=== PATIENT | female | born 1990 | race Caucasian/White ===

== ENCOUNTER 2024-11-14 16:59 | Outpatient (CLI) | payer BC, SELFPAY ==
--- OUTSIDE RECORDS SUMMARY | 2024-11-14 17:02 | XMS_ITS | Clinical Summary ---
Author Organization [facility] Address [address] [facility] [address] [place] [address] Phone Care Team Providers Care Blow Molder Name Role Phone Yemi Avila MD Primary Care Provider [phone] Medications clonazePAM 0.5 MG TABLET DISPERSIBLEIndi cations:Anxiety Take by mouth. prn Indications: Feeling Anxious Active methylPREDNISol one (MEDROL DOSPACK) 4 MG Tablet Therapy Pack See product package insert for dosing schedule 21 Tablet 11/23/2022 Active cyclobenzaprine (FLEXERIL) 5 MG Tablet Take 1 Tablet by mouth 3 times daily as needed for Muscle spasms. 15 Tablet 11/23/2022 Active Active Problems Problem Noted Date Diagnosed Date Drug abuse by member of household 06/06/2022 DEWAYNE (generalized anxiety disorder) 03/10/2022 Family History Medical History Relation Name Comments Bipolar Disorder Father Cancer Father Schizophrenia Father Drug Abuse Mother Relation Name Status Comments Father from lung cancer. had ptsd from [place] Mother Alive Social History Tobacco Use Types Packs/Day Years Used Date Smoking Tobacco: Every Day Cigarettes 0.3 20.4 Started: 06/26/2004 Smokeless Tobacco: Never Tobacco Cessation:Ready to Q uit: No Alcohol Use Standard Drinks/Week Comments Yes 0 (1 standard drink = 0.6 oz pure alcohol) twice a month a couple beers or wine Sexually Active Control Partners Comments Not Currently Male, Female Comments Unknown Sex and Gender Information Value Date Recorded Sex Assigned at Not on file Legal Sex Female 9:19 PM CDT Gender Identity Not on file Sexual Orientation Not on file Last Filed Vital Signs Vital Sign Reading Time Taken Comments Blood Pressure 130/80 11/23/2022 2:10 PM CDT Pulse 89 11/23/2022 2:10 PM CDT Temperature 36.7 C (98 F) 11/23/2022 2:10 PM CDT Respiratory Rate 18 11/23/2022 2:10 PM CDT Oxygen Saturation 100% 11/23/2022 2:10 PM CDT Inhaled Oxygen Concentration - - Weight 90.7 kg (200 lb) 11/23/2022 12:22 PM CDT Height 157.5 cm (5' 2 ) 11/23/2022 12:22 PM CDT Body Mass Index 36.58 11/23/2022 12:22 PM CDT Plan of Treatment Health Maintenance Due Date Last Done Comments Hepatitis C Virus (HCV) Screening 1989 Hepatitis B Immunization (1 of 3 - 19+ 3-dose series) 2008 Pap Smear 2010 Cervical Cancer Screening (CCS) 2019 HPV/Cotest 2019 Influenza Immunization (#1) 2024 SARS-COV-2 Immunization (2023- season) 2024 Respiratory Syncytial Virus (RSV) Immunization (Adult) (1 - 1-dose 75+ series) 2064 TdaP Immunization Completed 08/14/2003 DTaP/Tdap/Td Immunization Discontinued 2003, 08/14/2003, 10/26/1994, Additional history exists Meningococcal Immunization (ACWY) Aged Out No longer eligible based on patient's age to complete this topic Pneumococcal Immunization Combined Aged Out No longer eligible based on patient's age to complete this topic Rotavirus Immunization Aged Out No lo nger eligible based on patient's age to complete this topic Goals Goal Patient Goal Type Associated Problems Recent Progress Patient-Stated? Author Patient wants anxiety to decrease Behavioral Health No change(04/01 1:44 PM CDT) Yes Merle Alvarado LCSW Note: Anxiety symptoms and intrusive thoughts. My behavior affects my daughter. decrease anxiety by increasing insight and coping skills Behavioral Health No change(04/01 1:44 PM CDT) No Merle Alvarado LCSW Note: Goal/Objective: Decrease anxiety symptoms . Anticipated Time Frame for Goal Completion: 6 months Goal Reviewed with: patient Readiness to change: Ready to change Department associated with goal: [facility] Steps to achieve goal: will attend counseling/psychotherapy sessions at least once monthly at least 6 sessions , utilizing individual and/or group sessions to express thoughts and feelings. Review chaos of chilldhood and consider impact on current response to identify, verbalize and process at least three contributing factors/triggers to anxiety. to identify at least two lifestyle changes/habits. to put into action, at least one lifestyle change/habit, for one month or longer, to reduce and or cope with anxiety. Insurance MEDICAID AETNA [facility] Care Teams Blow Molder Relationship Specialty Start Date End Date Yemi Avila MD [address] [place] [id number] PCP - General Internal Medicine 06/30/21
--- OUTSIDE RECORDS SUMMARY | 2024-11-14 17:03 | XMS_ITS | Continuity of Care Document ---
Author Organization [facility] ice Address [address] [place] [address] Phone Care Team Providers Care Stove Installer Name Role Phone Unavailable Unavailable Unavailable Allergies, Adverse Reactions, Alerts Substance Reaction Status Criticality azithromycin GI problems Active No Information Medications Medication Instructions Dosage Effective Dates (start - stop) Status Comments Bactrim DS 800 mg-160 mg tablet take 1 tablet by oral route every 12 hours 1.00 tablet - Active Flonase 50 mcg/actuation nasal spray,suspension spray 2 spray (100MCG) by intranasal route every day in each nostril as needed - No Longer Active loratadine 10 mg tablet take 1 tablet (10MG) by oral route every day 10 MG - No Longer Active Procedures Procedure Date OFFICE/OUTPATIENT VISIT, [facility] OFFICE/OUTPATIENT VISIT, [facility] Advance Directives Directive Yes / No Effective Date File Name No Information Encounters Encounter Description Practice Location Reason(s) For Visit Diagnoses Date Provider Providers Copied on Encounter OFFICE/OUTPAT IENT VISIT, [facility], [address] [place] [address], [facility], tel:[phone] Corry LUMP IN R ARMPIT (chief complaint) Cellulitis 5 No Information OFFICE/OUTPAT IENT VISIT, [facility], [address] [place] [address], tel:[phone] Corry ALLERGIES (chief complaint) Allergic rhinitis 4 Sola Corrina. [address] [place] [address], [facility], . tel:[phone] Family History Family Member Type Diagnosis Age At Onset No Information Payers Payer name Insurance type Covered green party ID Christopher alvarez(s) No Information Social History Type Description Quantity Date Captured Comments Alcohol Use Details beer & wine 3 glasses socially 2014 Caffeine Use Details No Tobacco Use Status Occasional cigarette smoker Smoking Status Current some day smoker Smoking Tobacco Use Details Cigarette: No Details Available Cigarette: No Details Available Sex Female Vital Signs Date / Time: Height Weight BMI Pulse Rate Blood Pressure Temperature Respiratory Rate Body Surface Area Head Circumference Head Circ. Percentile Wt./Manolo. Percentile BMI percentile Pulse Ox Inhaled Ox 5:18 PM 68.946 kg (152.00 lbs) 92 /min 120/80 mm[Hg] 98.80 F 18 /min 98 % Chief Complaint And Reason For Visit From encounter dated '01/13/2015 17:09'. LUMP IN R ARMPIT (chief complaint). Description: The symptoms began 1 week ago and generally lasts 1 Week. The symptoms are reported as being moderate. The symptoms occur constantly. The location is right armpit. Patient found a lump in her armpit about a week ago. She states it is painful when shetouches it Reason For Referral Reason For Referral No Information History Of Present Illness Encounter Date Complaint History Of Prese nt Illness LUMP IN R ARMPIT The symptoms be tammie 1 week ago and generally lasts 1 Week. The symptoms are reported as being moderate. The symptoms occur constantly. The location is right armpit. Patient found a lump in her armpit about a week ago. She states it is painful when she touches it ALLERGIES The patient pres ents with itchy eyes, post nasal drainage, sneezing and watery eyes that began 1 week ago. Symptoms are constant, moderate and unchanged. The symptoms are felt to be related to season change. The patient is also experiencing headache, nasal congestion, post nasal drainage, sneezing and tearing. Functional Status Date Functional Assessmen t No Information Instructions Date Instruction Additional Infor luisbenson will do bactrim. Adv ised pt to f.u in two weeks time. Advised her to Related to Cellulitis monitor for signs of lymphadenop athy. Related to Cellulitis Patient instructed on use of ene ine sprays. Related to Allergic rhinitis Increase fluids. Related to Justin rgic rhinitis Instructions given for sinus irr igation. Related to Allergic rhinitis Assessments Type Assessment Date assessment Cellulitis Patient Care Teams Name Effective Dates (start - stop) Status Members No Information
[2024-11-14 17:25] LABS: Hematocrit 38.5 % (37.0-47.0); Hemoglobin 12.9 g/dL (12.0-15.0); Mean Corpuscular HGB Conc 33.5 g/dl (32-36); Mean Corpuscular Hemoglobin 30.1 pg (26-34); Mean Corpuscular Volume 89.7 fl (80-100); Mean Platelet Volume 10.3 fl (7.4-10.4); Platelet Count Result 324 k/mm3 (150-375); Red Blood Count 4.29 M/mm3 (4.2-5.4); Red Cell Distribution Width 12.6 % (11.5-14.5); White Blood Count 10.2 K/mm3 (4.5-10.0)
[2024-11-14 18:21] LABS: HIV 1/2 Ab P24 Ag Result Negative (Negative)
[2024-11-14 18:22] LABS: Hepatitis B Surface Antigen Negative (Negative); Rubella IgG Antibody 62.8 IU/ML
[2024-11-14 19:05] LABS: Syphilis IgG/IgM Antibody Negative (Negative)
[2024-11-16 03:54] LABS: CMV IgG Antibody <0.60 U/mL; Varicella IgG Antibody 5.42 S/CO
== END 2024-11-14 17:00 | disposition home or self-care (01) ==
LOC: ANHLAB 17:01
PROVIDERS: Visit Provider Student in an Organized Health Care Education/Training Program
DX: N91.2 Amenorrhea, unspecified (principal)
CPT/HCPCS: 36415; 84702; 85027; 86592; 86593; 86644; 86703; 86747; 86762; 86787; 86850; 86900; 86901; 87086; 87340; G0432

== ENCOUNTER 2024-11-20 14:53 | Outpatient (CLI) | payer BC, SELFPAY ==
--- OUTSIDE RECORDS SUMMARY | 2024-11-20 16:26 | XMS_ITS | Clinical Summary ---
Author Organization [facility] Address [address] [facility] [address] [place] [address] Phone Care Team Providers Care Plant Culture Manager Name Role Phone Yemi Avila MD Primary Care Provider [phone] Medications clonazePAM 0.5 MG TABLET DISPERSIBLEIndi cations:Anxiety [...] Ready to change Department associated with goal: [facility] Steps to achieve goal: [...] or cope with anxiety. Insurance MEDICAID AETNA [facility] Care Teams Plant Culture Manager Relationship Specialty Start Date End Date Yemi Avila MD [address] [place] [id number] PCP - General Internal Medicine 06/30/21
--- OUTSIDE RECORDS SUMMARY | 2024-11-20 16:26 | XMS_ITS | Continuity of Care Document ---
Author Organization [facility] ice Address [address] [place] [address] Phone Care Team Providers Care Organizational Development Manager Name Role Phone Unavailable Unavailable Unavailable Allergies, [...] Longer Active Procedures Procedure Date OFFICE/OUTPATIENT VISIT, [facility] OFFICE/OUTPATIENT VISIT, [facility] Advance Directives Directive Yes / No Effective Date File Name No Information Encounters Encounter Description Practice Location Reason(s) For Visit Diagnoses Date Provider Providers Copied on Encounter OFFICE/OUTPAT IENT VISIT, [facility], [address] [place] [address], [facility], tel:[phone] Corry LUMP IN R ARMPIT (chief complaint) Cellulitis 5 No Information OFFICE/OUTPAT IENT VISIT, [facility], [address] [place] [address], tel:[phone] Corry ALLERGIES (chief complaint) Allergic rhinitis 4 Sola Corrina. [address] [place] [address], [facility], . tel:[phone] Family History Family Member Type Diagnosis Age At Onset No Information Payers Payer name Insurance type Covered alliance party ID Christopher alvarez(s) No Information Social [...]
== END 2024-11-20 14:54 | disposition home or self-care (01) ==
LOC: ANHLAB 14:54
PROVIDERS: Visit Provider Student in an Organized Health Care Education/Training Program
DX: O46.90 Antepartum hemorrhage, unspecified, unspecified trimester (principal)
CPT/HCPCS: 36415; 84702

== ENCOUNTER 2024-11-27 14:04 | Outpatient (CLI) | payer BC, SELFPAY ==
--- NOTE | ~2024-11-27 | US_ITS ---
EXAMINATION: US OB <= 14 weeks fetus DATE: 11/27/2024 15:18 CDT INDICATION: Encounter for supervision of normal COMPARISON: None TECHNIQUE: Real-time transabdominal obstetric ultrasound. FINDINGS: 2 para 1 Estimated date of delivery by last menstrual period is 06/14/2025 The uterus measures 15.7 x 10.5 x 7.2 cm. A gestational sac is identified within the uterus. A possible implantation hemorrhage is detected measuring 19 x 16 x 24 mm. A pole is identified, with a crown-rump length that measures 1.82 cm, corresponding to an appro ximate gestational age of 8 weeks and 2 days. cardiac activity is identified at a rate of 186 bpm. The right ovary measures 3.8 x 3.5 x 2.0 cm. The left ovary measures 4.0 x 3.2 x 2.2 cm. Estimated date of delivery by ultrasound is 07/07/2025 IMPRESSION: Single intrauterine gestation with an approximate gestational age of 8 weeks and 2 days, with c ardiac activity identified. Possible implantation hemorrhage measuring 24 mm in greatest dimension for which short-term follow-up is recommended. Reviewed, dictated and finalized at location A. IMPRESSION: Single intrauterine gestation with an approximate gestational age of 8 weeks an d 2 days, with cardiac activity identified. Possible implantation hemorrhage measuring 24 mm in greatest dimension for whic h short-term follow-up is recommended.
--- OUTSIDE RECORDS SUMMARY | 2024-11-27 15:19 | XMS_ITS | Continuity of Care Document ---
Author Organization [facility] ice Address [address] [place] [address] Phone Care Team Providers Care Career Advisor Name Role Phone Unavailable Unavailable Unavailable Allergies, [...] Longer Active Procedures Procedure Date OFFICE/OUTPATIENT VISIT, [facility] OFFICE/OUTPATIENT VISIT, [facility] Advance Directives Directive Yes / No Effective Date File Name No Information Encounters Encounter Description Practice Location Reason(s) For Visit Diagnoses Date Provider Providers Copied on Encounter OFFICE/OUTPAT IENT VISIT, [facility], [address] [place] [address], [facility], tel:[phone] Corry LUMP IN R ARMPIT (chief complaint) Cellulitis 5 No Information [facility] [address] [place] [address], tel:[phone] Corry ALLERGIES (chief complaint) Allergic rhinitis 4 Sola Corrina. [address] [place] [address], [facility], . tel:[phone] Family History Family Member Type Diagnosis Age At Onset No Information Payers Payer name Insurance type Covered democrat ID Christopher alvarez(s) No Information Social History [...]
--- OUTSIDE RECORDS SUMMARY | 2024-11-27 15:19 | XMS_ITS | Clinical Summary ---
Author Organization [facility] Address [address] [facility] [address] [place] [address] Phone Care Team Providers Care Title I Teacher Name Role Phone Yemi Avila MD Primary Care Provider [phone] Medications clonazePAM 0.5 MG TABLET DISPERSIBLEIndi cations:Anxiety [...] Ready to change Department associated with goal: [facility] Steps to achieve goal: [...] or cope with anxiety. Insurance MEDICAID AETNA [facility] Care Teams Title I Teacher Relationship Specialty Start Date End Date Yemi Avila MD [address] [place] [id number] PCP - General Internal Medicine 06/30/21
== END 2024-11-27 14:05 | disposition home or self-care (01) ==
PROVIDERS: Visit Provider Student in an Organized Health Care Education/Training Program
DX: Z34.90 Encounter for supervision of normal pregnancy, unspecified, unspecified trimester (principal)
CPT/HCPCS: 76801

== ENCOUNTER 2025-04-18 09:50 | Outpatient (CLI) | payer BC, OTHER, SELFPAY ==
--- OUTSIDE RECORDS SUMMARY | 2025-04-18 10:03 | XMS_ITS | Clinical Summary ---
Author Organization [facility] Address [address] [address] Phone Care Team Providers Care College Or [employer] Faculty Member Name Role Phone Yemi Avila MD Primary Care Provider [phone] Allergies Active Allergy Reactions Criticality Noted Date Comments Azithromycin Vomiting 12/14/2024 Medications clonazePAM 0.5 MG TABLET DISPERSIBLEIndi cations:Anxiety Take by mouth. prn Indications: Feeling Anxious Active methylPREDNISol one (MEDROL DOSPACK) 4 MG Tablet Therapy Pack See product package insert for dosing schedule 21 Tablet 11/23/2022 Active cyclobenzaprine (FLEXERIL) 5 MG Tablet Take 1 Tablet by mouth 3 times daily as needed for Muscle spasms. 15 Tablet 11/23/2022 Active HYDROcodone-cody taminophen (NORCO) 5-325 MG TabletIndicatio ns:Pulpitis Take 1-2 Tablets by mouth every 4 hours as needed for Moderate or more severe pain. 12 Tablet 12/12/2024 Active Active Problems Problem Noted Date Diagnosed Date Drug abuse by member of household 06/06/2022 DEWAYNE (generalized anxiety disorder) 03/10/2022 Estimated Date of Delivery Comme nts Yes 07/07/2025 Family History Medical History Relation Name Comments Bipolar Disorder Father Cancer Father Schizophrenia Father Drug Abuse Mother Relation Name Status Comments Father from lung cancer. had ptsd from [place] Mother Alive Social History Tobacco Use Types Packs/Day Years Used Date Smoking Tobacco: Every Day Cigarettes 0.3 20.8 Started: 06/26/2004 Smokeless Tobacco: Never Tobacco Cessation:Ready to Q uit: No Alcohol Use Standard Drinks/Week Comments Yes 0 (1 standard drink = 0.6 oz pure alcohol) twice a month a couple beers or wine Sexually Active Control Partners Comments Not Currently Male, Female Estimated Date of Delivery Comme nts Yes 07/07/2025 Sex and Gender Information Value Date Recorded Sex Assigned at Not on file Legal Sex Female 9:19 PM CDT Gender Identity Not on file Sexual Orientation Not on file Last Filed Vital Signs Vital Sign Reading Time Taken Comments Blood Pressure 131/71 12/14/2024 9:37 AM CDT Pulse 86 12/14/2024 9:37 AM CDT Temperature 36.6 C (97.9 F) 12/14/2024 9:37 AM CDT Respiratory Rate 16 12/14/2024 9:37 AM CDT Oxygen Saturation 99% 12/14/2024 9:37 AM CDT Inhaled Oxygen Concentration - - Weight 77.1 kg (169 lb 15.6 oz) 12/14/2024 9:37 AM CDT Height 160 cm (5' 3) 12/14/2024 9:37 AM CDT Body Mass Index 30.11 12/14/2024 9:37 AM CDT Plan of Treatment Health Maintenance Due Date Last Done Comments Hepatitis C Virus (HCV) Screening 1989 Hepatitis B Immunization (1 of 3 - 19+ 3-dose series) 2008 Pneumococcal Immunization Combined (1 of 2 - PCV) 2008 Pap Smear 2010 Cervical Cancer Screening (CCS) 2019 HPV/Cotest 2019 SARS-COV-2 Immunization ( - season) 2024 Influenza Immunization (#1) 2025 Respiratory Syncytial Virus (RSV) Immunization (Adult) (1 - Risk 1-dose series) 05/12/2025 TdaP Immunization Completed 08/14/2003 DTaP/Tdap/Td Immunization Discontinued 2003, 08/14/2003, 10/26/1994, Additional history exists Human Papillomavirus (HPV) Immunization Completed 09/17/2009, 11/13/2007, 06/05/2007 Meningococcal Immunization (ACWY) Aged Out No longer [...] to change Department associated with goal: [facility] Steps to achieve [...] reduce and or cope with anxiety. Insurance Care Teams College Or University Faculty Member Relationship Specialty Start Date End Date Yemi Avila MD [address] [place] [address] PCP - General Internal Medicine 06/30/21
[2025-04-18 11:12] LABS: Hematocrit 35.2 % (37.0-47.0); Hemoglobin 11.8 g/dL (12.0-15.0); Immature Granulocyte Percent A 0.9 % (0-0.5); Lymphocytes Absolute Auto 1.24 K/mm3 (0.9-3.2); Mean Corpuscular HGB Conc 33.5 g/dl (32-36); Mean Corpuscular Hemoglobin 30.1 pg (26-34); Mean Corpuscular Volume 89.8 fl (80-100); Nucleated Red Blood Cells Absolute Auto 0.000 K/mm3 (0.0-0.012); Nucleated Red Blood Cells Perc 0.0 % (0.0-0.2); Platelet Count Result 202 k/mm3 (150-375); Red Blood Count 3.92 M/mm3 (4.2-5.4); White Blood Count 7.7 K/mm3 (4.5-10.0)
[2025-04-18 11:46] LABS: Glucose 1 Hour PP 50gm Dose 134 mg/dL
[2025-04-18 12:15] LABS: Syphilis IgG/IgM Antibody Non-Reactive (Nonreactive)
[2025-04-18 12:26] LABS: HIV 1/2 Ab P24 Ag Result Negative (Negative)
== END 2025-04-18 09:51 | disposition home or self-care (01) ==
LOC: ANHLAB 09:52
PROVIDERS: Visit Provider Obstetrics & Gynecology
DX: Z34.90 Encounter for supervision of normal pregnancy, unspecified, unspecified trimester (principal)
CPT/HCPCS: 36415; 82947; 85025; 86593; 86703; G0432

== ENCOUNTER 2025-06-05 09:35 | Outpatient (CLI) | payer BC, OTHER, SELFPAY ==
[2025-06-05 10:00] VITALS: BP 123/87; PULSE 101
[2025-06-05 10:07] LABS: Hematocrit 33.1 % (37.0-47.0); Hemoglobin 11.2 g/dL (12.0-15.0); Immature Granulocyte Percent A 0.6 % (0-0.5); Lymphocytes Absolute Auto 1.25 K/mm3 (0.9-3.2); Mean Corpuscular HGB Conc 33.8 g/dl (32-36); Mean Corpuscular Hemoglobin 29.0 pg (26-34); Mean Corpuscular Volume 85.8 fl (80-100); Nucleated Red Blood Cells Absolute Auto 0.000 K/mm3 (0.0-0.012); Nucleated Red Blood Cells Perc 0.0 % (0.0-0.2); Platelet Count Result 224 k/mm3 (150-375); Red Blood Count 3.86 M/mm3 (4.2-5.4); White Blood Count 8.0 K/mm3 (4.5-10.0)
[2025-06-05 10:14] LABS: Add Urine Microscopic? YES; Appearance Urine Cloudy (Clear); Glucose Urine UA Negative (Negative); Leukocyte Esterase Ur 2+ LEU/UL (Negative); Nitrate Urine Negative (Negative); Non Pathogenic Casts 0-2; Specific Grav Ur 1.010 (1.001-1.035)
[2025-06-05 10:15] VITALS: BP 129/86; PULSE 104
--- OUTSIDE RECORDS SUMMARY | 2025-06-05 10:16 | XMS_ITS | Clinical Summary ---
Author Organization [facility] Address [address] [address] Phone Care Team Providers Care Registered Occupational Therapist Name Role Phone Yemi Avila MD Primary Care Provider [phone] Allergies Active Allergy Reactions Criticality Noted Date [...] Date Smoking Tobacco: Every Day Cigarettes 0.3 20.9 Started: 06/26/2004 Smokeless Tobacco: Never Tobacco Cessation:Ready [...] (CCS) 2019 HPV/Cotest 2019 Influenza Immunization (#1) 2025 SARS-COV-2 Immunization ( - season) 2025 Respiratory Syncytial Virus (RSV) Immunization (Adult) [...] Ready to change Department associated with goal: [facility] Steps to achieve [...] or cope with anxiety. Insurance Care Teams Registered Occupational Therapist Relationship Specialty Start Date End Date Yemi Avila MD [address] [place] [address] PCP - General Internal Medicine 06/30/21
[2025-06-05 10:29] LABS: Alanine Aminotransferase 22 U/L (6-35); Albumin Level 3.4 g/dL (3.5-5.1); Alkaline Phosphatase 121 U/L (38-126); Anion Gap 9 mmol/L (4-12); Aspartate Amino Transferase 21 U/L (14-36); Bilirubin,Total 0.9 mg/dL (0.2-1.3); Blood Urea Nitrogen 6 mg/dL (7-17); Calcium 9.3 mg/dL (8.4-10.2); Carbon Dioxide 20 mmol/L (22-30); Chloride 106 mmol/L (98-107); Estimated Glomerular Filt Rate > 60; Glucose 101 mg/dL (65-110); Potassium 3.9 mmol/L (3.4-5.0); Sodium 135 mmol/L (137-145); Total Protein 6.4 g/dL (6.3-8.2); Uric Acid 4.5 mg/dL (2.5-7.5)
[2025-06-05 10:30] VITALS: BP 122/89; PULSE 117
--- NOTE | 2025-06-05 10:40 | PC.NURSE ---
Dr Mckenna on the Unit, Informed of BP's and labs, OK to dc home with precautions. Informed to not take BP's at home unless patient is not feeling well.
[2025-06-05 10:45] VITALS: BP 116/83; PULSE 110
[2025-06-05 10:49] LABS: Total Protein Urine Random 10 mg/dL; Ur Ttl Prot Creatinine Ratio 0.19 mg/mg (0-0.20)
== END 2025-06-05 10:47 | disposition home or self-care (01) ==
LOC: ANHOBOP 09:42 → ANHOBPP 09:45
PROVIDERS: Visit Provider Obstetrics & Gynecology
DX: O13.9 Gestational [pregnancy-induced] hypertension without significant proteinuria, unspecified trimester (principal); Z3A.00 Weeks of gestation of pregnancy not specified
CPT/HCPCS: 36415; 59025; 80053; 81001; 82570; 84156; 84550; 85025; 99199

== ENCOUNTER 2025-06-09 15:23 | Outpatient (CLI) | payer BC, OTHER, SELFPAY ==
--- OUTSIDE RECORDS SUMMARY | 2025-06-09 16:54 | XMS_ITS | Clinical Summary ---
Author Organization [facility] Address [address] [address] Phone Care Team Providers Care Db2 Systems Programmer Name Role Phone Yemi Avila MD Primary Care Provider [phone] Allergies Active Allergy Reactions Criticality Noted Date [...] Date Smoking Tobacco: Every Day Cigarettes 0.3 21 Started: 06/26/2004 Smokeless Tobacco: Never Tobacco Cessation:Ready [...] Influenza Immunization (#1) 2025 SARS-COV-2 Immunization ( season) 2025 Respiratory Syncytial Virus (RSV) Immunization [...] Ready to change Department associated with goal: [facility] Steps to [...] or cope with anxiety. Insurance Care Teams Db2 Systems Programmer Relationship Specialty Start Date End Date Yemi Avila MD [address] [place] [address] PCP - General Internal Medicine 06/30/21
[2025-06-13 19:09] LABS: Total Bile Acids 2.7 umol/L (.)
== END 2025-06-09 15:24 | disposition home or self-care (01) ==
LOC: ANHLAB 15:24
PROVIDERS: Visit Provider Student in an Organized Health Care Education/Training Program
DX: O13.9 Gestational [pregnancy-induced] hypertension without significant proteinuria, unspecified trimester (principal); Z3A.00 Weeks of gestation of pregnancy not specified
CPT/HCPCS: 82542

== ENCOUNTER 2025-06-25 15:35 | Outpatient (RCR) | payer BC, OTHER, SELFPAY ==
[2025-06-11 09:46] VITALS: BP 136/83; PULSE 81
[2025-06-18 15:40] VITALS: BP 131/85; PULSE 81
[2025-06-25 18:40] VITALS: BP 140/94; PULSE 76
== END 2025-07-10 08:04 | disposition home or self-care (01) ==
LOC: ANHOBOP 15:35
PROVIDERS: Visit Provider Obstetrics & Gynecology
DX: O26.643 Intrahepatic cholestasis of pregnancy, third trimester (principal); Z3A.36 36 weeks gestation of pregnancy; O16.3 Unspecified maternal hypertension, third trimester; Z3A.37 37 weeks gestation of pregnancy; Z3A.38 38 weeks gestation of pregnancy
CPT/HCPCS: 59025

== ENCOUNTER 2025-07-07 09:43 | Inpatient (IN) | payer BC, OTHER, SELFPAY ==
[2025-07-07] VITALS (51 sets, daily range): BP systolic 125–171; BP diastolic 77–117; PULSE 81–125; TEMP 36.7–37.1; O2SAT 96–100; BMI 39.0
--- OUTSIDE RECORDS SUMMARY | 2025-07-07 11:40 | XMS_ITS | Clinical Summary ---
Author Organization [facility] Address [address] [address] Phone Care Team Providers Care Acid Tank Liner Name Role Phone Yemi Avila MD Primary Care Provider [phone] Allergies Active Allergy Reactions Criticality Noted Date [...] Comments Hepatitis C Virus (HCV) Screening 1989 Varicella Immunization (1 of 2 - 13+ 2-dose series) 2002 Hepatitis B Immunization (1 of 3 - 19+ 3-dose series) 2008 Pneumococcal Immunization Combined (1 of 2 - PCV) 2008 Pap Smear 2010 Cervical Cancer Screening (CCS) 2019 HPV/Cotest 2019 Influenza Immunization (#1) 2025 SARS-COV-2 Immunization ( season) 2025 TdaP Immunization Completed 08/14/2003 DTaP/Tdap/Td Immunization Discontinued 2003, 08/14/2003, 10/26/1994, Additional history exists Human Papillomavirus (HPV) Immunization Completed 09/17/2009, 11/13/2007, 06/05/2007 Meningococcal Immunization (ACWY) Aged Out No longer eligible based on patient's age to complete this topic Respiratory Syncytial Virus (RSV) Immunization (Adult) (No Doses Required) Completed Rotavirus Immunization Aged Out No lo nger [...] Ready to change Department associated with goal: [facility] Steps to achieve [...] or cope with anxiety. Insurance Care Teams Acid Tank Liner Relationship Specialty Start Date End Date Yemi Avila MD [address] [place] [address] PCP - General Internal Medicine 06/30/21
[2025-07-07 11:43] LABS: Hematocrit 35.9 % (37.0-47.0); Hemoglobin 11.8 g/dL (12.0-15.0); Immature Granulocyte Percent A 1.0 % (0-0.5); Lymphocytes Absolute Auto 1.53 K/mm3 (0.9-3.2); Mean Corpuscular HGB Conc 32.9 g/dl (32-36); Mean Corpuscular Hemoglobin 28.0 pg (26-34); Mean Corpuscular Volume 85.3 fl (80-100); Nucleated Red Blood Cells Absolute Auto 0.000 K/mm3 (0.0-0.012); Nucleated Red Blood Cells Perc 0.0 % (0.0-0.2); Platelet Count Result 161 k/mm3 (150-375); Red Blood Count 4.21 M/mm3 (4.2-5.4); White Blood Count 8.1 K/mm3 (4.5-10.0)
--- NOTE | 2025-07-07 11:49 | LDADM ---
This patient, Caterina Wiggins, was admitted to Labor/Delivery/Recovery 105 on 07/07/25 at 09:43. Plans for labor, pain management and were discussed with patient. Patient/family oriented to hospital policies and general routines including ID bracelet, bed and alarms, visiting hours, pain management, procedures, bathroom and other care routines, personal items, smoking policy, room service/diet and guest tray routines, security routines, and visiting hours. Patient/Family are encouraged to report perceived risks to care and to ask questions if they do not understand what they are told or what they should do. See [facility]BI[facility] for further documentation.
[2025-07-07 12:31] LABS: Syphilis IgG/IgM Antibody Non-Reactive (Nonreactive)
[2025-07-07 15:09] LABS: Alanine Aminotransferase 13 U/L (6-35); Albumin Level 4.0 g/dL (3.5-5.1); Alkaline Phosphatase 200 U/L (38-126); Anion Gap 10 mmol/L (4-12); Aspartate Amino Transferase 22 U/L (14-36); Bilirubin,Total 1.2 mg/dL (0.2-1.3); Blood Urea Nitrogen 7 mg/dL (7-17); Calcium 9.7 mg/dL (8.4-10.2); Carbon Dioxide 18 mmol/L (22-30); Chloride 107 mmol/L (98-107); Estimated CRCL calculation 117 ml/min; Estimated Glomerular Filt Rate > 60; Glucose 58 mg/dL (65-110); Potassium 3.8 mmol/L (3.4-5.0); Sodium 135 mmol/L (137-145); Total Protein 7.4 g/dL (6.3-8.2); Uric Acid 5.4 mg/dL (2.5-7.5)
--- NOTE | 2025-07-07 17:28 | WPDANESEPP ---
Anes - Eval Pre Procedure Procedure: Labor epidural Date/Time: 07/07/25 17:28 Surgeon: Bala Preop Diagnosis: pain during labor Pre Op Diagnosis: srom Patient Data Age: 35 Gender: F Height: 1.6 m Weight: 100 kg Last Vital Signs Temp 36.9 C 07/07/25 15:30 Pulse 97 07/07/25 17:00 BP 149/99 H 07/07/25 17:00 O2 Del Method Room Air 07/07/25 11:41 Allergies Allergy/AdvReac Type Severity Reaction Status Date / Time azithromycin Allergy Mild Nausea Verified 07/07/25 11:50 Home Medications ?Medication ?Instructions ?Recorded ?Confirmed ?Type vits no.126-ferrous fum 1 tablet PO DAILY 11/11/24 06/27/25 History 28 mg iron-folic acid 800 mcg tablet (Classic ) Laboratory Tests 07/07/25 07/07/25 07/07/25 11:32 12:12 14:46 WBC 8.1 K/mm3 (4.5-10.0) RBC 4.21 M/mm3 (4.2-5.4) Hgb 11.8 L g/dL (12.0-15.0) Hct 35.9 L % (37.0-47.0) MCV 85.3 fl (80-100) MCH 28.0 pg (26-34) MCHC 32.9 g/dl (32-36) RDW 14.6 H % (11.5-14.5) Plt Count 161 k/mm3 (150-375) MPV 12.0 H fl (7.4-10.4) Immature Gran % (Auto) 1.0 H % (0-0.5) Neut % (Auto) 68.1 % (45.5-73.1) Lymph % (Auto) 18.9 % (18.3-44.2) [place] % (Auto) 10.7 H % (2.6-8.5) Eos % (Auto) 0.9 % (0-4.4) Baso % (Auto) 0.4 % (0.2-1.2) Lymph # (Auto) 1.53 K/mm3 (0.9-3.2) [place] # (Auto) 0.9 H K/mm3 (0.1-0.6) Eos # (Auto) 0.1 K/mm3 (0-0.3) Baso # (Auto) 0.0 K/mm3 (0.0-0.1) Abs Immat Gran (auto) 0.08 H K/mm3 (0.00-0.031) Absolute Neuts (auto) 5.5 K/mm3 (1.3-6.7) Absolute Nucleated RBC 0.000 K/mm3 (0.0-0.012) Nucleated RBC % 0.0 % (0.0-0.2) Sodium 135 L mmol/L (137-145) Potassium 3.8 mmol/L (3.4-5.0) Chloride 107 mmol/L (98-107) Carbon Dioxide 18 L mmol/L (22-30) Anion Gap 10 mmol/L (4-12) BUN 7 mg/dL (7-17) Creatinine 0.64 L mg/dL (0.7-1.0) Estim Creat Clear Calc 117 ml/min Estimated GFR > 60 (59 - ) Glucose 58 L* mg/dL (65-110) POC Capillary Glucose Uric Acid 5.4 mg/dL (2.5-7.5) Calcium 9.7 mg/dL (8.4-10.2) Total Bilirubin 1.2 mg/dL (0.2-1.3) AST 22 U/L (14-36) ALT 13 U/L (6-35) Alkaline Phosphatase 200 H U/L (38-126) Total Protein 7.4 g/dL (6.3-8.2) Albumin 4.0 g/dL (3.5-5.1) Syphilis IgG/IgM Ab Non-reactive (Nonreactive) Blood Type O Positive Antibody Screen Negative 07/07/25 15:13 WBC RBC Hgb Hct MCV MCH MCHC RDW Plt Count MPV Immature Gran % (Auto) Neut % (Auto) Lymph % (Auto) [place] % (Auto) Eos % (Auto) Baso % (Auto) Lymph # (Auto) [place] # (Auto) Eos # (Auto) Baso # (Auto) Abs Immat Gran (auto) Absolute Neuts (auto) Absolute Nucleated RBC Nucleated RBC % Sodium Potassium Chloride Carbon Dioxide Anion Gap BUN Creatinine Estim Creat Clear Calc Estimated GFR Glucose POC Capillary Glucose 104 mg/dl (65-105) Uric Acid Calcium Total Bilirubin AST ALT Alkaline Phosphatase Total Protein Albumin Syphilis IgG/IgM Ab Blood Type Antibody Screen Patient hx anesthesia problems: none Family hx anesthesia problems: none Results Review: All pre-operative results and documents have been reviewed as part of the pre-operative evaluation. [facility] Past Medical History Medical History (Updated 07/07/25 @ 17:28 by Nannette Kaplan CRNA) Scoliosis IUP (intrauterine ), incidental Obesity (BMI 30-39.9) Anxiety Family History Family History Father Lung cancer Grandparent Diabetes mellitus Social History Social History Smoking status: Never smoker Alcohol intake: former Substance use: never Substance use type: does not use Do You Feel Safe in your Home?: Yes Lack of Transportation: No Lack of Food: Never True Current Housing: I Have Housing Concerned About Future Housing: No Difficulty Paying Gas/Electric Bills: No Difficulty Paying for Meds: No Currently Unemployed: No Education: Trade/Vocational Certificate Difficulty w/ Childcare or Family Care: No Living arrangements: with family Occupation/Education: occupation Gender identity (if verbalized by the patient): Female Sexual Orientation (if Verbalized by the Patient): Straight or Heterosexual Spiritual care concerns: No Exam Day of Procedure 07/07/25 17:28
--- NOTE | 2025-07-07 17:48 | PM.IMHP ---
H&P: HPI History of Present Illness Date/Time: 07/07/25 17:48 Chief Complaint: spontaneous rupture of membranes intrauterine at term advanced maternal age Narrative: 35-year-old who presents at 40 weeks 0 days after spontaneous rupture of membranes. Review of Systems Cardiovascular: Cardiovascular: Denies chest pain, Denies leg edema, Denies palpitations, Denies dyspnea and Denies dyspnea on exertion Respiratory: Respiratory: Denies cough, Denies dyspnea and Denies dyspnea on exertion Gastrointestinal: Gastrointestinal: Denies abdominal pain, Denies constipation, Denies diarrhea, Denies nausea and Denies vomiting Genitourinary: Genitourinary: Denies hematuria, Denies urinary frequency, Denies dysuria, Denies pelvic pain, Denies urinary incontinence and Denies vaginal discharge Neurologic: Reports system reviewed and no additional complaints, except as documented Psychiatric: Psychiatric: Reports no additional psychiatric complaints Endocrine: Endocrine: Denies palpitations PMFSH Past Medical History Medical History (Updated 07/07/25 @ 17:28 by Nannette Kaplan CRNA) Scoliosis IUP (intrauterine ), incidental Obesity (BMI 30-39.9) Anxiety Family History Family History Father Lung cancer Grandparent Diabetes mellitus Social History Social History Smoking status: Never smoker Alcohol intake: former Substance use: never Substance use type: does not use Do You Feel Safe in your Home?: Yes Lack of Transportation: No Lack of Food: Never True Current Housing: I Have Housing Concerned About Future Housing: No Difficulty Paying Gas/Electric Bills: No Difficulty Paying for Meds: No Currently Unemployed: No Education: Trade/Vocational Certificate Difficulty w/ Childcare or Family Care: No Living arrangements: with family Occupation/Education: occupation Gender identity (if verbalized by the patient): Female Sexual Orientation (if Verbalized by the Patient): Straight or Heterosexual Spiritual care concerns: No Meds Home Medications and Allergies Home Medications ?Medication ?Instructions ?Recorded ?Confirmed ?Type vits no.126-ferrous fum 1 tablet PO DAILY 11/11/24 06/27/25 History 28 mg iron-folic acid 800 mcg tablet (Classic ) Allergies Allergy/AdvReac Type Severity Reaction Status Date / Time azithromycin Allergy Mild Nausea Verified 07/07/25 11:50 Vital Signs Vital Signs - 24 hr 07/07/25 08:45 07/07/25 10:00 07/07/25 11:00 Temperature 98.5 F 98.7 F Pulse Rate 84 Blood Pressure 142/104 H Oxygen Delivery 07/07/25 11:41 07/07/25 13:03 07/07/25 13:25 Temperature 98.2 F Pulse Rate 81 Blood Pressure 144/91 H Oxygen Delivery Room Air 07/07/25 14:37 07/07/25 15:30 07/07/25 16:06 Temperature 98.5 F Pulse Rate 110 H 94 Blood Pressure 146/99 H 140/93 H Oxygen Delivery 07/07/25 17:00 Temperature Pulse Rate 97 Blood Pressure 149/99 H Oxygen Delivery Exam Const: General: no acute distress Eyes: EOM: EOMs intact bilaterally Neck: Neck: supple Thyroid: thyroid normal Chest: Breast/axilla inspection: normal inspection of the breasts Breast/axilla palpation: normal palpation of the breasts, normal palpation of the axillae and no axillary lymphadenopathy Resp: Effort & Inspection: normal respiratory effort Auscultation: clear to auscultation bilaterally Cardio: Rate: regular rate Rhythm: regular rhythm GI: Inspection: non-distended and other (Gravid) GI Palp: Yes Soft to palpation, No Tenderness to palpation present (GI) and No Guarding due to palpation present (GI) Auscultation: normal bowel sounds : Speculum Exam - Vagina: No vaginal bleeding OB/external & speculum: external exam normal; No vaginal bleeding Skin: General skin exam: normal color and no rashes or lesions noted Neuro: Cognition (Neuro): normal cognition Speech: normal speech Extrem: General: normal to inspection Psych: Mental Status: mental status grossly normal Affect: normal affect H&P: Results Labs Labs: Short CBC 07/07/25 Range/Units 11:32 WBC 8.1 (4.5-10.0) K/mm3 Hgb 11.8 L (12.0-15.0) g/dL Hct 35.9 L (37.0-47.0) % Plt Count 161 (150-375) k/mm3 BMP 07/07/25 14:46 Sodium 135 L Potassium 3.8 Chloride 107 Carbon Dioxide 18 L BUN 7 Creatinine 0.64 L Glucose 58 L* Calcium 9.7 Liver Function 07/07/25 Range/Units 14:46 Total Bilirubin 1.2 (0.2-1.3) mg/dL AST 22 (14-36) U/L ALT 13 (6-35) U/L Alkaline Phosphatase 200 H (38-126) U/L Albumin 4.0 (3.5-5.1) g/dL Assessment and Plan Assessment and plan (1) IUP (intrauterine ), incidental: Code(s): Z33.1 - state, incidental Status: Acute Assessment and Plan: 35-year-old at 40 weeks 0 days SROM at 7:00 a.m. Admit to L&D Routine admission orders Rh positive GBS negative Continuous EFM (2) Advanced maternal age (AMA) in : Status: Acute
--- NOTE | 2025-07-07 17:50 | PM.OBPNLAB ---
Pain Control Date/time seen: 07/07/25 17:50 Pelvic Exam Dilation (cm): 1 Contractions Monitor mode: External Contraction pattern: Absent Status status: Category l Assessment and Plan Comments: patient refuses augmentation with Pitocin or misoprostol. Patient refusing cervical exams or interventions until 12 hours ruptured. Discussed increased risk for chorioamnionitis and . Will continue to observe.
[2025-07-07 17:54] LABS: OBXCEM ROM Plus Positive (Negative)
[2025-07-07] MEDS: OXYTOCIN 30 UNITS/NS 500 ML 30 UNITS/500 ML BAG IV CONT (19:30)
[2025-07-07] MEDS: LACTATED RINGERS 1,000 ML 125 ML IV CONT ×2 (19:30→22:50)
[2025-07-07] MEDS: SODIUM CHLORIDE 0.9% IV 300 ML 600 ML I-UTERINE (22:13)
[2025-07-08] VITALS (87 sets, daily range): BP systolic 99–164; BP diastolic 65–118; PULSE 82–273; RESP 16–25; TEMP 36.3–37.8; O2SAT 95–100
[2025-07-08] MEDS: AMPICILLIN SODIUM 2 GM in SODIUM CHLORIDE 0.9% IV 100 ML 200 ML IVPB (01:24)
[2025-07-08] MEDS: PHENYLEPHRINE 1,000 MCG/10 ML SYRINGE 100 MCG IV PUSH (02:38)
[2025-07-08] MEDS: ACETAMINOPHEN 500 MG TABLET 1000 MG PO ×3 (03:26→20:00)
[2025-07-08] MEDS: FAMOTIDINE 20 MG/2 ML VIAL IV PUSH (03:27)
[2025-07-08] MEDS: ONDANSETRON INJ 4 MG/2 ML VIAL IV PUSH (03:27)
--- NOTE | 2025-07-08 03:27 | P.PNOB_ITS ---
Pain Control Date/time seen: 07/08/25 03:27 Pelvic Exam Dilation (cm): 6 Effacement (%): 70 station: -3 Amniotic membrane status: Ruptured Contractions Monitor mode: External Contraction pattern: Regular Status status: Category ll Comments: recurrent late variables, occasional prolonged deceleration Assessment and Plan Plan: Comments: Called by RN to evaluate heart tracing due to prolonged deceleration and recurrent late decelerations. Cervix was evaluated and remained 6 cm. Patient is now over 20 hours since rupture of membranes. Thick meconium was noted on exam. Discussed plan of care with patient. Recommended proceeding with C- section. The patient was resistant to . Discussed increased risk for brain injury, stroke, cerebral palsy with recurrent insult to baby noted by heart tone decelerations. Discussed risks of meconium aspiration. Discussed that patient is remote from complete dilation. Expressed concerns for continuing labor with distress. Risks and benefits of discussed with patient. Patient consents to proceed with primary due to failure to progress and intolerance of labor
--- NOTE | 2025-07-08 04:30 | W.PM.OBCSD ---
OB - Delivery Note Procedure Delivery date: 07/08/25 Pre-op diagnosis: Arrest of Dilation and Decelerations Post-op Diagnosis: Same Induction method: None Delivery augmentation: Pitocin Delivery monitor: External FHT and Internal Uterine Prior to decision for section, ACOG/SMFM labor guidelines were considered and discussed with the patient and staff. Decision made to proceed with the section.: Yes Procedure Performed: Primary Primary branch: low cervical, transverse Surgeon: Fidencio Wolff MD Anesthesia type: Epidural Description of Procedure/Findings: The patient was taken to the operating room. A combined spinal epidural anesthesic was administered and found to be adequate at a t-10 level. The patient was placed in a supine position with a slight left lateral tilt. A martinez catheter was placed with return of clear urine. A Bovie grounding pad was placed. Surgical prep was performed and surgical drapes were placed. A surgical time out was performed. A Pfannenstiel skin incision was then made with the scalpel and carried through to the underlying layer of fascia. The fascia was then incised in the midline and the incision was extended laterally with the Fuchs scissors. The superior aspect of the fascia was then grasped with the Tl clamps, elevated, and the underlying rectus muscles dissected off bluntly and sharply. Attention was then turned to the inferior aspect of this incision which, in a similar fashion, was grasped, tented up with the Tl clamps, and the rectus muscles dissected off both bluntly and sharply. The rectus muscles were then in the midline. The peritoneum was identified and entered bluntly. The peritoneal incision was then extended superiorly and inferiorly with good visualization of the bladder. The vesico-uterine serosa was identified and dissected to create a bladder flap. A ring retractor was placed for better visualization. The uterus was inspected for rotation. A low-transverse uterine incision was made sharply with the scalpel and entry was made into the uterine cavity. An amniotomy was made and copious amounts of thick meconium was noted on return. The fluid had an odor to it suggesting possible chorioamnionitis. The uterine incision was extended laterally bluntly. The bladder blade was removed and the fetus was delivered atraumatically. The umbilical cord was clamped twice and cut. The was handed off to the waiting staff. A second segment of umbilical cord was clamped and cut for cord blood gasses. Cord blood was collected for determination of the blood type and for direct Puri. The placenta was delivered spontaneously without difficulty. The placenta appeared grossly normal and complete. The uterus was exteriorized and cleared of all clots and debris. The uterine incision was repaired using 0-monocryl suture in a running fashion. A second layer of 0 Monocryl suture was used in an imbricating fashion to obtain excellent hemostasis and uterine strength. The uterine closure was inspected for hemostasis. The posterior aspect of the uterus and the broad ligaments were inspected and the posterior cul-de-sac cleared of fluid and blood clots. The uterine closure was again inspected and found to be hemostatic. The uterus was returned to the abdominal cavity. The pericolic gutters were inspected and were cleared of all blood clots and debris. The uterine closure was then re inspected to ensure hemostasis as were all subfascial tissues. The peritoneum was closed using 3-0 vicryl in a running fashion. The fascia was reapproximated with 0-vicryl in a running fashion. The subcutaneous tissue was irrigated and hemostasis achieved with electrocautery. It was reapproximated with 3-0 vicryl in a running fashion. The skin was closed with 4-0 vicryl in a subcuticular fashion. A sterile dressing was applied to the wound. The patient tolerated the procedure well. Sponge, lap and needle counts were correct times three. The patient was taken to recovery in stable condition and without anticipated complications. Specimen: Yes (placenta) Estimated Blood Loss: 1,950 Drains: No Packing: No Pathology: Yes (placenta) Complications: No immediate complications Condition: Stable Disposition: Floor Baby Date of : 07/08/25 Infant gender: Male Weight (pounds): 8 Weight (ounces): 8 presentation: vertex Placenta delivery description: Manual Removal Cord Vessel Description: 3 Vessels
--- NOTE | 2025-07-08 05:32 | S_PTH ---
PATIENT: Caterina Wiggins LOC: [facility] U#:[id number] AGE/SX: 35/F ROOM: 292 RE07/07/[address]: Fidencio Wolff MD : 1990 BED: 00 DIS: 07/10/2025 SPEC #: [id number] RECD: 07/08/25 07:26 STATUS: ALIE RERick #: [id number] DOMINIQUE: 07/08/25 05:[address]: Fidencio Wolff DEPT: [facility] Surgical RECD BY: Monroe Montague ENTERED: 07/08/25 07:26 SP TYPE: Surgical OTHR DR: Jovani Mckenna MD PRINTING AGENT PHYSICIAN Tissues: A - Placenta Procedures: Hematoxylin and Eosin Stain Gross and Microscopic Level 5
[2025-07-08 05:49] LABS: Hematocrit 29.8 % (37.0-47.0); Hemoglobin 9.7 g/dL (12.0-15.0); Immature Granulocyte Percent A 0.5 % (0-0.5); Lymphocytes Absolute Auto 0.19 K/mm3 (0.9-3.2); Mean Corpuscular HGB Conc 32.6 g/dl (32-36); Mean Corpuscular Hemoglobin 28.4 pg (26-34); Mean Corpuscular Volume 87.1 fl (80-100); Nucleated Red Blood Cells Absolute Auto 0.060 K/mm3 (0.0-0.012); Nucleated Red Blood Cells Perc 1.6 % (0.0-0.2); Platelet Count Result 117 k/mm3 (150-375); Red Blood Count 3.42 M/mm3 (4.2-5.4); White Blood Count 3.8 K/mm3 (4.5-10.0)
[2025-07-08 06:05] LABS: Anisocytosis 1+; Microcytosis 1+ (NORMAL)
[2025-07-08 06:06] LABS: Hypochromasia 1+; Schistocytes None Seen
[2025-07-08] MEDS: OXYTOCIN 30 UNITS/NS 500 ML 30 UNITS/500 ML BAG 125 UNITS IV CONT (06:08)
[2025-07-08] MEDS: LACTATED RINGERS 1,000 ML 125 ML IV CONT (06:29)
[2025-07-08] MEDS: KETOROLAC 15 MG/ML VIAL (*BKC) IV PUSH ×3 (07:00→20:00)
--- NOTE | 2025-07-08 07:50 | PC.NURSE ---
This patient, Caterina Wiggins, was received from [labor and delivery per bed to room 292]. Patient/family oriented to unit policies and routines
[2025-07-08] MEDS: ceFAZolin 1 GM in SODIUM CHLORIDE 0.9% IV 50 ML 100 ML IVPB (08:31)
[2025-07-08] MEDS: MULTIVIT/MIN/PREN/FOL AC/IRON TABLET 1 TAB PO (10:03)
[2025-07-08] MEDS: SIMETHICONE 80 MG TAB.CHEW PO ×3 (10:03→16:35)
[2025-07-08] MEDS: oxyCODONE HCL (*CRX) 5 MG TAB IR PO ×2 (10:03→11:05)
[2025-07-08] MEDS: DOCUSATE SODIUM 100 MG CAPSULE PO ×2 (10:03→20:00)
--- NOTE | 2025-07-08 11:42 | PC.NURSE ---
Consulted with patient to assess needs related to . Discussed with mother her successes, concerns and any questions she has. We reviewed working with the , supporting breast, protecting her nipples with an optimal deep latch, good positioning, and good hand washing. Encouraged understanding the benefits of skin to skin, responding to feeding cues, frequencies of feeding 8-12 times in 24 hours (approximately 2-3 hours), duration of feedings, milk production, intake/output feeding sheet and signs of adequate intake encouraging swallowing at the breast. Reviewed positioning and alignment, supporting breast, off-centered (asymmetrical latch) and leading with the chin with big, open, wide gape. latched optimally to the [left] breast in [cradle] position. Education given to the mother of how to visualize the suckling (with good rocking jaw motion) swallows (dropping of the lower jaw) and how to listen for drinking at the breast (the ka sound). The was [able] to maintain latch without discomfort to mother. Nipple care reviewed with optimal latch, good positioning and using clean hands when touching her breast. Resources used to facilitate learning were used from the [visual handouts/ tool/mom and baby guide]. Mother voiced understanding of the education shared, to call for assistance if the does not latch or if there is discomfort with . Reported to the Primary RN.
[2025-07-08] MEDS: oxyCODONE HCL (*CRX) 5 MG TAB IR 10 MG PO (16:36)
[2025-07-08] MEDS: DEXTROSE 5%/0.45% SOD CHL 1,000 ML 125 ML IV CONT (16:37)
[2025-07-09] VITALS (12 sets, daily range): BP systolic 123–153; BP diastolic 81–95; PULSE 91–110; RESP 16–19; TEMP 36.6–37.7; O2SAT 96–100
[2025-07-09] MEDS: DEXTROSE 5%/0.45% SOD CHL 1,000 ML 125 ML IV CONT (00:38)
[2025-07-09] MEDS: ACETAMINOPHEN 500 MG TABLET 1000 MG PO ×4 (02:43→22:32)
[2025-07-09] MEDS: KETOROLAC 15 MG/ML VIAL (*BKC) IV PUSH (02:43)
[2025-07-09 04:51] LABS: Hematocrit 22.1 % (37.0-47.0); Hemoglobin 7.1 g/dL (12.0-15.0); Mean Corpuscular HGB Conc 32.1 g/dl (32-36); Mean Corpuscular Hemoglobin 28.1 pg (26-34); Mean Corpuscular Volume 87.4 fl (80-100); Platelet Count Result 101 k/mm3 (150-375); Red Blood Count 2.53 M/mm3 (4.2-5.4); White Blood Count 19.6 K/mm3 (4.5-10.0)
[2025-07-09 05:25] LABS: Band Neutrophils Percent 15 % (0-6); Eosinophils Absolute Manual 0.19 K/mm3 (0.02-0.50); Eosinophils Percent Manual 1 % (0-4); Lymphocytes Absolute Manual 0.78 K/mm3 (1.1-4.5); Lymphocytes Percent Manual 4.0 % (18-44); Monocytes Absolute Manual 0.58 K/mm3 (0.1-0.90); Monocytes Percent Manual 3 % (3-9); Neutrophils Absolute Manual 18.03 K/mm3 (1.3-6.7); Neutrophils Percent Manual 77 % (46-73); Total Cells Counted 100
[2025-07-09 05:26] LABS: Burr Cells 1+; Schistocytes None Seen
--- NOTE | 2025-07-09 07:31 | PM.OBPNVD ---
OB - PN: Subj Subjective Date/time seen: 07/09/25 07:31 Patient comments: no complaints, pain well controlled, tolerating diet and flatus present OB - PN: Obj Data Labs 07/09/25 04:37 07/07/25 14:46 Labs: Laboratory Results - last 24 hr 07/09/25 04:37 WBC 19.6 H RBC 2.53 L Hgb 7.1 L Hct 22.1 L MCV 87.4 MCH 28.1 MCHC 32.1 RDW 15.1 H Plt Count 101 L MPV 12.4 H Immature Gran % (Auto) Not Reportable Neut % (Auto) Not Reportable Lymph % (Auto) Not Reportable [place] % (Auto) Not Reportable Eos % (Auto) Not Reportable Baso % (Auto) Not Reportable Lymph # (Auto) Not Reportable [place] # (Auto) Not Reportable Eos # (Auto) Not Reportable Baso # (Auto) Not Reportable Abs Immat Gran (auto) Not Reportable Absolute Neuts (auto) Not Reportable Absolute Nucleated RBC Not Reportable Total Counted 100 Neutrophils % (Manual) 77 H Band Neutrophils % 15 H Lymphocytes % (Manual) 4.0 L Monocytes % (Manual) 3 Eosinophils % (Manual) 1 Nucleated RBC % Not Reportable Abs Neuts (Manual) 18.03 H Abs Lymphs (Manual) 0.78 L Abs Monocytes (Manual) 0.58 Absolute Eos (Manual) 0.19 Platelet Estimate Decreased Dilshad Cells 1+ Schistocytes None seen OB - PN A/P Plan day: 1 Plan: routine care Comments: patient doing well H/H 7.09/04. pt is tachycardic. recommend 2 u pRBC. pt noted to have leukocytosis on CBC. chorio suspected at . afebrile. will continue to monitor incision C/D/I martinez removed, voiding spontaneously continue routine post op care Time Spent With Patient Time: Total time spent is greater than 50% in coordination of care (as documented) at patient's floor/unit and/or counseling patient: Time with patient: less than 15 minutes Review of Systems Constitutional: Constitutional: Reports no additional constitutional complaints Cardiovascular: Cardiovascular: Reports no additional cardiovascular complaints Respiratory: Respiratory: Reports no additional respiratory complaints Gastrointestinal: Gastrointestinal: Reports no additional gastrointestinal complaints Genitourinary: Genitourinary: Reports no additional female genitourinary complaints Exam Const: General: comfortable and no acute distress Resp: Effort & Inspection: normal respiratory effort Auscultation: clear to auscultation bilaterally Cardio: Rate: regular rate GI: GI Palp: Yes Soft to palpation, Yes Tenderness to palpation present (GI) (around incision ) and No Guarding due to palpation present (GI) Auscultation: normal bowel sounds Other: incision C/D/I, covered with Dermabond Psych: Appearance: grossly normal Mental Status: mental status grossly normal Affect: normal affect
--- NOTE | 2025-07-09 08:49 | WPDANLDPN2 ---
Anes-Prog Note L&D Date/Time: 07/09/25 08:49 Neuro status: Neuro function grossly intact. Cardiovascular status: normal Respiratory status: normal Airway patency: baseline Mental status: baseline Post-Op hydration status: normal Vital Signs: Last Vital Signs Temp 36.6 C 07/09/25 00:25 Pulse 110 H 07/09/25 00:25 Resp 19 07/09/25 00:25 BP 124/86 07/09/25 00:25 Pulse Ox 97 07/09/25 00:25 O2 Del Method Room Air 07/08/25 19:58 Pain score (VAS): 0 I/O: Intake & Output 07/08/25 07/09/25 07/09/25 23:59 07:59 15:59 Intake Total 240 1504.2 Output Total 100 2000 Balance 140 -495.8 Post-procedural complaints: none Patient feedback: Patient satisfied with anesthetic care.
--- NOTE | 2025-07-09 08:49 | WPDANLDNPN2 ---
Anes-Prog Note L&D-Neuraxial Date/Time: 07/09/25 08:49 Patient feedback: Patient satisfied with post-operative pain management.
[2025-07-09] MEDS: IBUPROFEN 600 MG TABLET PO ×3 (09:10→22:32)
[2025-07-09] MEDS: DOCUSATE SODIUM 100 MG CAPSULE PO ×2 (09:11→16:27)
[2025-07-09] MEDS: MULTIVIT/MIN/PREN/FOL AC/IRON TABLET 1 TAB PO (09:11)
[2025-07-09] MEDS: SIMETHICONE 80 MG TAB.CHEW PO ×2 (09:11→16:27)
[2025-07-09] MEDS: SODIUM CHLORIDE 0.9% IV 250 ML 30 ML IV CONT (09:11)
--- NOTE | 2025-07-09 16:02 | P.DS_ITS ---
DS: Admitting Diagnosis Discharge Date 07/10/25 Admitting Diagnosis intrauterine at term DS: Discharge Diagnosis Discharge Diagnosis (1) delivery delivered: Code(s): O82 - Encounter for delivery without indication Status: Acute OB - DS: Summary OB Procedures : None OB Procedures Intrapartum: OB Procedures: : Transfusion Peripartum Data Delivery Method: Section Procedures: Procedures Operation Date: 07/08/25 03:45 Actual Procedure Side Surgeon p Section Not Applicable Fidencio Wolff MD complications: transfusion Status at Discharge Functional status at discharge: independent ambulation Overall status at discharge: patient is progressing back to baseline Time Spent with Patient Time attestation: Total time spent providing and/or coordinating discharge services: Time spent: Less than 30 minutes Exam Const: General: comfortable and no acute distress Resp: Effort & Inspection: normal respiratory effort Auscultation: clear to auscultation bilaterally Cardio: Rate: regular rate GI: Inspection: non-distended GI Palp: Yes Soft to palpation, No Firmness to palpation present (GI), Yes Tenderness to palpation present (GI) (mild tenderness over incision ) and No Guarding due to palpation present (GI) Auscultation: normal bowel sounds Psych: Appearance: grossly normal Mental Status: mental status grossly normal DS: Data Data Completed and Pending Completed studies during hospitalization: Pending at discharge 07/08/25 05:32 Surgical [PTH] Routine Labs on day of discharge: Labs from last 24 hours 07/09/25 07/07/25 04:37 12:12 WBC 19.6 H RBC 2.53 L Hgb 7.1 L Hct 22.1 L MCV 87.4 MCH 28.1 MCHC 32.1 RDW 15.1 H Plt Count 101 L MPV 12.4 H Immature Gran % (Auto) Not Reportable Neut % (Auto) Not Reportable Lymph % (Auto) Not Reportable [place] % (Auto) Not Reportable Eos % (Auto) Not Reportable Baso % (Auto) Not Reportable Lymph # (Auto) Not Reportable [place] # (Auto) Not Reportable Eos # (Auto) Not Reportable Baso # (Auto) Not Reportable Abs Immat Gran (auto) Not Reportable Absolute Neuts (auto) Not Reportable Absolute Nucleated RBC Not Reportable Total Counted 100 Neutrophils % (Manual) 77 H Band Neutrophils % 15 H Lymphocytes % (Manual) 4.0 L Monocytes % (Manual) 3 Eosinophils % (Manual) 1 Nucleated RBC % Not Reportable Abs Neuts (Manual) 18.03 H Abs Lymphs (Manual) 0.78 L Abs Monocytes (Manual) 0.58 Absolute Eos (Manual) 0.19 Platelet Estimate Decreased Dilshad Cells 1+ Schistocytes None seen Blood Type O Positive Antibody Screen Negative Crossmatch See Detail Discharge Plan Discharge Discharging Clinician: Fidencio Wolff Patient Disposition: Home Activity: as tolerated and pelvic rest Diet: regular Patient Instructions: Antibiotic Form, (DC) Patient Language: [place] Stand Alone Forms: General Discharge Information Follow-up/Referrals: Fidencio Wolff MD [Physician, ANNEALING FURNACE OPERATOR] Discharge Medications: New oxycodone-acetaminophen 5-325 mg tablet 1 tablet PO Q6H PRN (Reason: pain) Qty: 28 0RF ibuprofen 600 mg tablet 600 mg PO Q6H PRN (Reason: pain) Qty: 30 0RF ferrous sulfate 325 mg (65 mg iron) tablet 325 mg PO DAILY Qty: 90 0RF Continued Classic 28 mg iron- 800 mcg tablet 1 tablet PO DAILY Date of admission: 07/07/25 09:43 Primary Care Provider: PHYSICIAN,TELECOMMUNICATIONS PROFESSIONAL Admitting Provider: Jovani Mckenna Attending physician on admission: Jovani Mckenna Condition: Stable
--- NOTE | 2025-07-09 17:47 | PC.NURSE ---
1010 Mother verbalizes she is able to independently latch infant with appropriate positioning and alignment. She denies any nipple discomfort and is responsively . is currently meeting outcomes for weight, output, jaundice, blood sugar and feeding frequencies of 8-12 times in 24 hours. Mother declines any additional assistance or education at this time. Mother is encouraged to call for assistance if her doesn?t latch, pain with latching, questions or concerns. Mother voiced understanding of information shared along with the mom/baby guide for an additional resource. Reported to the Primary RN. 1500 Breast pump provided due to mother's request. Instructions given on cleaning, care, usage, that there should be no pain, pumping schedule for milk production, collection, and storage of human milk. Patient was assessed for correct placement, flange size, to pump for comfort and nipple stretching/stimulation for adequate milk production every 3 hours (8 times in 24 hours) 1-2 times at night. Parents are encouraged to record the pumping schedule on the feeding sheet.?Mother voiced understanding of the education shared along with mom/baby guide and the pump measurement, flange fit handout for additional resource information. Reported to the Primary RN.
[2025-07-09] MEDS: oxyCODONE HCL (*CRX) 5 MG TAB IR PO (20:39)
[2025-07-09] MEDS: LIDOCAINE 5% PATCH 1 PATCH TRANSDERM (22:32)
[2025-07-10] MEDS: oxyCODONE HCL (*CRX) 5 MG TAB IR 10 MG PO (00:53)
[2025-07-10] MEDS: IBUPROFEN 600 MG TABLET PO (04:59)
[2025-07-10] MEDS: ACETAMINOPHEN 500 MG TABLET 1000 MG PO (04:59)
--- NOTE | 2025-07-10 05:08 | PC.NURSE ---
This RN was called to room 292 by caring RN. Pt was on the toilet and states something is coming out from vagina and feels pressure. RN observed placenta membrane was hanging from vagina. Used speculum and tried retract membrane and was able to extract the membrane. The membrane was about 25-30 cm. no excess vaginal bleeding noted. Called Dr. Jones reported was given. No further intervention was needed at this time. Dr. Jones will exam the pt this AM.
[2025-07-10] MEDS: MULTIVIT/MIN/PREN/FOL AC/IRON TABLET 1 TAB PO (08:14)
[2025-07-10] MEDS: DOCUSATE SODIUM 100 MG CAPSULE PO (08:14)
[2025-07-10] MEDS: SIMETHICONE 80 MG TAB.CHEW PO (08:14)
[2025-07-10 09:00] VITALS: BP 112/84; PULSE 80; RESP 18; TEMP 37; O2SAT 98
--- NOTE | 2025-07-10 11:40 | P.PNOB_ITS ---
OB - PN: Subj Subjective Date/time seen: 07/10/25 11:40 Narrative: Nursing called overnight. The patient had noticed membranes prolapsing through the vagina. The nurse teased a long strip of membrane out without difficulty. The patient says she feels great and she would like to go home. I examined the membrane - it was normal in appearance. It was discarded. I discussed all this with the patient and all her questions were answered. OB - PN: Obj Data Labs 07/09/25 04:37 07/07/25 14:46 Labs: Laboratory Results - last 24 hr 07/07/25 12:12 Blood Type O Positive Antibody Screen Negative Crossmatch See Detail OB - PN A/P Plan day: 2 Comments: A: POD#2, doing well. P: Home to f/u as scheduled. Exam 2 Narrative: AVSS ABD soft, nontender, fundus firm. Incision c/d/i. EXT nontender
== END 2025-07-10 13:20 | disposition home or self-care (01) | DRG 788 ==
LOC: ANHOB2 07-09 16:06 → ANHLDR 07-15 06:17
PROVIDERS: Admitting Provider Obstetrics & Gynecology; Visit Provider Student in an Organized Health Care Education/Training Program
PROC: 10D00Z1 Extraction of Products of Conception, Low, Open Approach (ICD-10-PCS; CPT 59514; principal; 2025-07-08 03:45)
DX: O62.0 Primary inadequate contractions (principal); O99.214 Obesity complicating childbirth; O76 Abnormality in fetal heart rate and rhythm complicating labor and delivery; O77.0 Labor and delivery complicated by meconium in amniotic fluid; Z3A.40 40 weeks gestation of pregnancy; Z37.0 Single live birth
CPT/HCPCS: 36415; 36430; 80053; 82948; 84112; 84550; 85025; 86593; 86850; 86900; 86901; 86923; 88307; A9270; J0290; J0690; J1200; J1885; J2004; J2371; J2405; J2590; J2795; J7030; J7050; J7120; P9016